=== PATIENT | female | born 1945 | race Caucasian/White ===

== ENCOUNTER 2016-10-27 15:00 | Emergency (ER) | payer MEDICARE, BC ==
[~2016-10-27] VITALS: Ht 172.7 cm; Wt 78.2 kg
[2016-10-27] MEDS ORDERED: SYNTHROID0.05 MG PO (15:03)
[2016-10-27 18:16] VITALS: BP 138/79
== END 2016-10-27 17:55 | disposition home or self-care (01) ==
LOC: ED 15:00
DX: S91.012A Laceration without foreign body, left ankle, initial encounter (principal); W23.0XXA Caught, crushed, jammed, or pinched between moving objects, initial encounter
CPT/HCPCS: 15840; 5930; A4550; A4649

== ENCOUNTER 2017-02-01 11:36 | Emergency (ER) | payer MEDICARE, BC ==
[~2017-02-01] VITALS: Ht 170.2 cm; Wt 77.3 kg
[~2017-02-01 11:36] MED LIST: SYNTHROID0.05 MG PO
[2017-02-01 15:30] VITALS: BP 171/88
== END 2017-02-01 15:20 | disposition home or self-care (01) ==
LOC: ED 11:36
DX: H81.11 Benign paroxysmal vertigo, right ear (principal); E03.9 Hypothyroidism, unspecified; Z85.3 Personal history of malignant neoplasm of breast
CPT/HCPCS: J7030

== ENCOUNTER → 2020-02-08 | Day surgery (SDC) | payer MEDICARE, BC | LOC: MSO 08:14 | DX: H25.12 Age-related nuclear cataract, left eye (principal); M19.90 Unspecified osteoarthritis, unspecified site; G43.909 Migraine, unspecified, not intractable, without status migrainosus; E03.9 Hypothyroidism, unspecified; K21.9 Gastro-esophageal reflux disease without esophagitis; Z87.891 Personal history of nicotine dependence; Z85.3 Personal history of malignant neoplasm of breast | CPT/HCPCS: 00142; J0171; J2250; V2632 ==

== ENCOUNTER 2021-10-23 08:26 | Emergency (ER) | payer MEDICARE, BC ==
[2021-10-23] MEDS ORDERED: SYNTHROID0.075 MG PO (08:35)
[2021-10-23] MEDS ORDERED: FISH OIL1 IU PO (08:35)
[2021-10-23 09:26] LABS: BASO # 0.03 K/mm3 (0.02-0.10); EOS # 0.08 K/mm3 (0.04-0.40); EOS % 2.8 % (1.0-5.0); HEMATOCRIT 42.8 % (37.0-47.0); HEMOGLOBIN 13.7 g/dL (12.5-16.0); LYMPH# 1.38 K/mm3 (1.50-4.00); MEAN CELL VOLUME 99 fl (78-100); MEAN CORPUSCULAR HEMOGLOBIN 32 pg (27-31); MEAN CORPUSCULAR HGB CONC 32 g/dL (33-37); MEAN PLATELET VOLUME 10.6 fl (7.4-10.4); MONO # 0.31 K/mm3 (0.20-0.80); NEU # 1.04 K/mm3 (1.40-6.50); PLATELET COUNT 190 K/mm3 (130-400); RED BLOOD COUNT 4.31 M/mm3 (4.10-5.30); RED CELL DISTRIBUTION WIDTH 12.9 % (11.5-14.5); WHITE BLOOD COUNT 2.8 K/mm3 (4.8-10.8)
[2021-10-23 09:32] LABS: CALCIUM 9.8 mg/dL (8.3-10.5)
[2021-10-23 09:46] LABS: PROTHROMBIN TIME 9.9 SECONDS (9.0-12.0)
[2021-10-23 10:34] VITALS: BP 137/91
== END 2021-10-23 10:00 | disposition home or self-care (01) ==
LOC: ED 08:26
PROVIDERS: Physician Assistant
DX: R04.0 Epistaxis (principal); Z28.310 Unvaccinated for COVID-19

== ENCOUNTER → 2024-03-24 | Outpatient (CLI) | payer MEDICARE, BC ==
[~2024-03-24] VITALS: Ht 170.2 cm; Wt 82.0 kg
[~2024-03-24] MED LIST changes: +CALCIUM 500 + D1 TA2 PO; +Denosumab 60 MG/ML SYRINGE SQ ONE; +FISH OIL1 IU PO; +MAGNESIUM250 M3 PO; +SYNTHROID0.075 MG PO; +VIT D2-K1 20-1259 ML PO
[2024-03-24 09:22] VITALS: BP 139/89
== END ==
LOC: AMSURD 08:57
DX: M81.0 Age-related osteoporosis without current pathological fracture (principal)
CPT/HCPCS: J0897